=== PATIENT | male | born 1960 | race Caucasian/White ===

== ENCOUNTER → 2018-03-20 | Outpatient (CLI) | payer OTHER ==
[~2018-03-20] MED LIST: GADOBUTROL 10 ML VIAL IVP ONE
== END ==
LOC: FIMAGING 07:58
PROVIDERS: ATTEND Specialist
DX: R91.8 Other nonspecific abnormal finding of lung field (principal); C61 Malignant neoplasm of prostate
CPT/HCPCS: A9585